=== PATIENT | male | born 1930 | race Caucasian/White ===

== ENCOUNTER → 2016-10-12 | Outpatient (CLI) | payer MEDICARE, OTHER | LOC: EMI 09:54 → MRI 10:15 → EMI 10:30 | DX: M47.26 Other spondylosis with radiculopathy, lumbar region (principal); M54.16 Radiculopathy, lumbar region; M51.17 Intervertebral disc disorders with radiculopathy, lumbosacral region | CPT/HCPCS: 72148; 73502 ==